=== PATIENT | female | born 1965 | race Caucasian/White ===

== ENCOUNTER → 2020-05-23 | Outpatient (CLI) | payer OTHER ==
--- NOTE | 2020-05-23 14:47 | RAD ---
EXAM: CHEST 2 VIEWS. HISTORY: Pneumonia. COMPARISON: 10/04/2006. FINDINGS: Frontal and lateral views of the chest are obtained. There are no confluent infiltrates. There is no pneumothorax or pleural effusion. The heart is not enlarged. Prominence of the left heart border is stable and likely reflects an epicardial fat pad. Breast implants and spinal stimulator electrodes are noted. IMPRESSION: 1. No confluent infiltrates. Electronically signed by: Cari Maldonado MD (05/23/2020 2:44 PM) [id number]
--- NOTE | 2020-05-27 16:40 | RAD ---
BILATERAL SCREENING MAMMOGRAM, 3-D A report was produced for this patient's exam. The content of the report was intended for a different patient's exam. Please disregard the dictated report. Interpretation for this patient's screening mammogram mammogram will be provided at a later date. Electronically signed by: Bashir Brown MD (05/27/2020 4:38 PM) [id number]
== END | disposition home or self-care (01) ==
LOC: MAMMO 10:12
PROVIDERS: ATTEND Family Medicine
DX: Z12.31 Encounter for screening mammogram for malignant neoplasm of breast (principal); J18.9 Pneumonia, unspecified organism
CPT/HCPCS: 71046; 77063; 77067

== ENCOUNTER → 2020-06-20 | Outpatient (CLI) | payer OTHER ==
--- NOTE | 2020-06-20 13:19 | RAD ---
DATE: 06/20/2020 1:00 PM EXAM: DIGITAL DIAGNOSTIC LT HISTORY: Screening recall for nodular asymmetry in the subareolar left breast COMPARISON: 05/23/2020, 03/23/2018 Technique: Spot compression views of the left breast in the CC and MLO projections were obtained FINDINGS: Breast Density: SCATTERED The breast parenchyma shows scattered fibroglandular densities. Breast parenchyma level B Questioned nodular asymmetry did not persist with additional views. IMPRESSION: No mammographic evidence of malignancy. BI-RADS CATEGORY: 1 NEGATIVE RECOMMENDED FOLLOW-UP: 12M 12 MONTH FOLLOW-UP Annual screening mammography is recommended, unless clinically indicated sooner based on symptoms or change in physical exam. PQRS compliance statement: Patient information was entered into a reminder system with a target due date for the next mammogram. Mammography is a sensitive method for finding small breast cancers, but it does not detect them all and is not a substitute for careful clinical examination. A negative mammogram does not negate a clinically suspicious finding and should not result in delay in biopsying a clinically suspicious abnormality. "Our facility is accredited by the [employer] Mammography Program."
== END | disposition home or self-care (01) ==
LOC: MAMMO 12:45
PROVIDERS: ATTEND Family Medicine
DX: R92.2 Inconclusive mammogram (principal)
CPT/HCPCS: 77065

== ENCOUNTER 2021-01-23 18:13 | Inpatient (IN) | payer OTHER ==
[~2021-01-23] VITALS: Ht 162.6 cm; Wt 82.4 kg
[2021-01-23] MEDS ORDERED: IBUPROFEN 600 MG TABLET. PO ONE (19:00)
[2021-01-23] MEDS ORDERED: ACETAMINOPHEN 500 MG TABLET PO ONE (19:00)
[2021-01-23] MEDS ORDERED: IV RINGERS SOLUTION,LACTATED 1,000 ML IV ONE (19:00)
--- NOTE | 2021-01-23 19:08 | PHYS DOC ---
Past History Past Medical History: Other Additional Past Medical Histor: Chronic back pain Alcohol Use: None Adult General Chief Complaint Chief Complaint: SHORTNESS OF BREATH HPI HPI Patient is a 55-year-old female with a past medical history significant for hypertension who presents with a chief complaint of 2 to 3 days of shortness of breath at home. States that her recently had similar symptoms but does not know if it is Covid or not. States over the last couple of days has had some dyspnea on exertion but denies chest pain, abdominal pain, nausea, vomiting, diarrhea, dysuria, hematuria or blood in the stool. States she also has some fatigue and generalized body aches. States she has had intermittent fevers at home, last 1 being yesterday of 101 and took some Tylenol which did resolve the fever. Denies any recent travel. Review of Systems Review of Systems Review of systems otherwise unremarkable except noted in HPI Allergies Allergies Allergies Coded Allergies Type Severity Reaction Last Updated Verified cyclobenzaprine Allergy Unknown 01/23/21 Yes Physical Exam Physical Exam Constitutional: Well developed, well nourished, no acute distress, appears that she does not feel well [] HENT: Normocephalic, atraumatic, bilateral external ears normal, oropharynx moist, no oral exudates, nose normal. [] Eyes:conjunctiva normal, no discharge. [] Neck: Normal range of motion, no tenderness, supple, no stridor. [] Cardiovascular:Heart rate regular rhythm, no murmur [] Lungs & Thorax: Bilateral breath sounds notable for global rhonchi, worse on the left with no wheezing. Tachypnea and hypoxia on room air, placed on 2 L nasal cannula to achieve 94% saturation. Abdomen: soft, no tenderness, no masses, no pulsatile masses. [] Skin: Warm, dry, no erythema, no rash. [] Back: No tenderness, Extremities: No tenderness, no cyanosis, no clubbing, ROM intact, no edema. [] Neurologic: Alert and oriented X 3, normal motor function, normal sensory function, no focal deficits noted. [] Psychologic: Affect normal, judgement normal, mood normal. [] Current Patient Data Vital Signs Vital Signs Date Time Temp Pulse Resp B/P (MAP) Pulse Ox O2 Delivery O2 Flow Rate FiO2 01/23/21 18:48 98.3 87 16 134/83 (100) 88 Room Air EKG EKG Rate of 84, QRS of 100, QTC of 469, no STEMI. Normal EKG [] Radiology/Procedures Radiology/Procedures []FINDINGS: The cardiomediastinal silhouette is within normal limits. Patchy areas of consolidative change identified within the right upper lobe, right middle lobe and left lower lobe. There are no significant pleural effusions. There is no pulmonary vascular congestion. No pneumothorax. No suspicious osseous abnormality. Spinal epidural leads are partially profiled. IMPRESSION: New patchy areas of consolidation identified within the lungs predominantly involving the right upper lobe, right middle lobe and left lower lobe and lingula. Findings favor multifocal pulmonary infiltrates. Electronically signed by: Maye Dietz MD (01/23/2021 7:19 PM) [facility] Heart Score C/O Chest Pain: No Risk Factors: Risk Factors: DM, Current or recent (<one month) smoker, HTN, HLP, family history of CAD, obesity. Risk Scores: Risk Factors: DM, Current or recent (<one month) smoker, HTN, HLP, family history of CAD, obesity. Course & Med Decision Making Course & Med Decision Making Patient is a 55-year-old female presents with several days of shortness of breath, associated with decreased appetite, fatigue and body aches Vital signs notable for tachypnea and hypoxia to 88 on room air. Vital signs otherwise normal. Placed on 2 L nasal cannula to reach a saturation of 94%. EKG noted above and not concerning for STEMI. Troponin normal. Laboratory analysis not concerning. Lactate normal. Blood gas with a pH of 7.5, PCO2 of 32, PO2 of 39, bicarb of 30, lactate of 1.23 Patient placed on the monitor with IV access established and IV fluid resuscitation begun. Ibuprofen and Tylenol given. Given Zofran for nausea. Chest x-ray notable for multifocal infiltrates. Cultures obtained. Antibiotics started. Covid swab obtained. IV fluid resuscitation continued. Given DVT prophylaxis Lovenox. Gave steroids. [] Discussed findings with patient and recommended admission for continued evaluation and treatment of her hypoxic respiratory distress secondary to pneumonia. Patient grateful, verbalized understanding and agreed with plan of admission. Dragon Disclaimer Dragon Disclaimer This electronic medical record was generated, in whole or in part, using a voice recognition dictation system. Departure Departure: Impression: Primary Impression: Pneumonia Additional Impression: Hypoxia Disposition: 09 ADMITTED INPT THIS HOSP Admitting Physician: Milagros Morley Condition: IMPROVED Referrals: SAUNDRA ESTEVES MD (PCP) Problem Qualifiers TA STACK MD Jan 23, 2021 19:08
[2021-01-23] MEDS ORDERED: ONDANSETRON PF 4 MG/2 ML VIAL. IVP ONE (19:15)
[2021-01-23 19:19] LABS: BASO % 1 % (0-3); EOS % 0 % (0-3); HEMATOCRIT 37.9 % (36.0-47.0); HEMOGLOBIN 12.7 g/dL (12.0-15.5); LYMPH # 1.4 x10^3/uL (1.0-4.8); LYMPH % 21 % (24-48); MEAN CORPUSCULAR HEMOGLOBIN 29 pg (25-35); MEAN CORPUSCULAR HGB CONC 34 g/dL (31-37); MEAN CORPUSCULAR VOLUME 85 fL (79-100); MONO # 0.7 x10^3/uL (0.0-1.1); MONO % 11 % (0-9); NEUT # 4.4 x10^3uL (1.8-7.7); NEUT % 68 % (31-73); PLATELET COUNT 400 x10^3/uL (140-400); RED BLOOD COUNT 4.45 x10^6/uL (3.50-5.40); RED CELL DISTRIBUTION WIDTH 12.8 % (11.5-14.5); WHITE BLOOD COUNT 6.5 x10^3/uL (4.0-11.0)
--- NOTE | 2021-01-23 19:21 | RAD ---
XR CHEST 1V 01/23/2021 6:57 PM INDICATION: Shortness of breath COMPARISON: 05/23/2020 TECHNIQUE: Portable frontal view of the chest is provided. FINDINGS: The cardiomediastinal silhouette is within normal limits. Patchy areas of consolidative change identified within the right upper lobe, right middle lobe and le ft lower lobe. There are no significant pleural effusions. There is no pulmonary vascular congestion. No pneumothora x. No suspicious osseous abnormality. Spinal epidural leads are partially profiled. IMPRESSION: New patchy areas of consolidation identified within the lungs predominantly involving the right upper lobe, right middle lobe and left lower lobe and lingula. Findings favor multifocal pulmonary infiltr ates. Electronically signed by: Maye Dietz MD (01/23/2021 7:19 PM) [facility]
[2021-01-23 19:32] LABS: CALCIUM 8.2 mg/dL (8.5-10.1); CREATININE 0.7 mg/dL (0.6-1.0); GFR 86.6; POTASSIUM 3.1 mmol/L (3.5-5.1)
[2021-01-23 19:46] LABS: ALBUMIN 2.7 g/dL (3.4-5.0); ALBUMIN/GLOBULIN RATIO 0.7 (1.0-1.7); TOTAL BILIRUBIN 0.5 mg/dL (0.2-1.0); TOTAL PROTEIN 6.6 g/dL (6.4-8.2)
[2021-01-23] MEDS ORDERED: ENOXAPARIN 40 MG/0.4 ML SYRINGE. SQ ONE (20:45)
[2021-01-23] MEDS ORDERED: DEXAMETHASONE 4 MG TABLET PO ONE (20:45)
--- NOTE | 2021-01-23 22:12 | EKG ---
[facility] [address] [place] [address] Test Date: 2021-01-23 Test Time: 19:18:58 Pat Name: SANDER ADAM Department: Room: Gender: F Distribution Designer: SAIGE : 1965 Requested By: TA STACK Order Number: [id number] Reading MD: Measurements Intervals [place] Rate: 84 P: 38 MI: 122 QRS: 64 QRSD: 100 T: 51 QT: 394 QTc: 469 Interpretive Statements SINUS RHYTHM NORMAL ECG RI6.02 No previous ECG available for comparison
[2021-01-23 22:30] VITALS: BP 138/75
--- NOTE | 2021-01-23 22:30 | NUR ---
Pt admitted to ICU bed 1 from ER via [facility], accompanied by EMS and nursing staff. Pt ambulated from rney to bed independently, steady gait noted. Pt here for c/o SOA and fever. Pt is a PUI, Pt stated that her felt the same way about a week ago and tested negative for Covid. Admission assessment completed. Health history reviewed with pt. Home medication bottles (3) here in purse, reviewed with pt. Pt lives at home with her . Lovenox for VTE. Pt refused of flu vaccine. Discussed POC with pt, verbalize understanding. Call light in reach. Pt was given written information regarding hospital policies, unit procedures and contact persons. Valuables were checked and logged, left in room with pt. Pt given box lunch for HS snack per request. Dr Morley called regarding admission and new orders received.
[2021-01-23] MEDS ORDERED: OXYC10TA PO (22:33)
[2021-01-23] MEDS ORDERED: VENL75CA6 PO (22:33)
[2021-01-23] MEDS ORDERED: OXYC13.5 PO (22:33)
[2021-01-23] MEDS ORDERED: POTASSIUM CHLORIDE 20 MEQ TABLET.ER. PO ONE (22:45)
[2021-01-23] MEDS ORDERED: oxyCODONE ER 10 MG TAB.ER.12H PO PRN (23:00)
[2021-01-23 23:38] LABS: BILIRUBIN,URINE NEG (NEG); CLARITY,URINE CLEAR; COLOR,URINE YELLOW; GLUCOSE,URINE NEG (NEG)
[2021-01-23 23:39] LABS: BACTERIA,URINE 0 /HPF (0-FEW); NITRITE,URINE NEG (NEG); RBC,URINE 0 /HPF (0-2); SQUAMOUS EPITHELIAL CELL,UR FEW /LPF; WBC,URINE OCC /HPF (0-4)
[2021-01-24 05:45] VITALS: BP 125/82
[2021-01-24] MEDS ORDERED: IOHEXOL 350 MG/ML 100 ML VIAL. IV ONE ×2 (07:15)
--- NOTE | 2021-01-24 08:39 | RAD ---
CT angiography of the chest 01/24/2021 7:37 AM Indication: SOA, Hypoxia, high D-Dimer PUI / History: Technique: Multiple contiguous axial images were obtained through the chest after administration of i ntravenous iodinated contrast. Coronal, sagittal, and 3-D MIP reformations were created. Comparison: None Findings: There is no filling defect within central pulmonary arteries or evidence of acute pulmonary embolism. Heart size is normal. No pericardial effusion is appreciated. Scattered mildly prominent mediastinal lymphadenopathy noted. The thoracic aorta is grossly normal in course and contour. There is no pneumothorax or pleural effus ion. There are patchy groundglass infiltrates throughout the bilateral lungs involving all lobes. The appe arance is suggestive of multifocal pneumonia and may represent a viral or atypical infectious process . Limited visualization of the upper abdomen demonstrates fatty infiltration of the liver. No acute n ormalities of the upper abdomen are identified. No acute osseous changes are seen. IMPRESSION: 1. No evidence of pulmonary embolism 2. Patchy groundglass infiltrates throughout the bilateral lungs involving all lobes concerning for m ultifocal pneumonia, particularly atypical or viral pneumonia . Given provided history of PUI status, the appearance would be consistent with Covid [address] DOSING PQRS STATEMENT: One or more of the following individualized dose reduction techniques were utilized for this examinat ion: 1. Automated exposure control 2. Adjustment of the mA and/or kV according to patient size 3. Use of iterative reconstruction technique Electronically signed by: Natan Kirk MD (01/24/2021 8:37 AM) [place] [id number]
[2021-01-24] MEDS ORDERED: ENOXAPARIN 40 MG/0.4 ML SYRINGE. SQ SCH (09:00)
[2021-01-24] MEDS: VENLAFAXINE 75 MG TABLET. PO SCH ×3 (09:00→20:52)
[2021-01-24] MEDS: LACTOBACILLUS RHAMNOSUS GG 1 CAPSULE. PO SCH ×2 (09:33→20:51)
[2021-01-24] MEDS: DEXAMETHASONE 4 MG TABLET PO SCH (09:33)
[2021-01-24 11:00] VITALS: BP 118/78
[2021-01-24] MEDS ORDERED: REMDESIVIR LOAD in IV NORMAL SALINE 250ML TV IV ONE (12:30)
[2021-01-24] MEDS ORDERED: DEXTROSE 50% 25 GM / 50ML DISP.SYRIN. IV PRN (13:15)
[2021-01-24] MEDS: OXYCODONE MYRISTATE 13.5 MG PO SCH ×2 (13:40→20:52)
[2021-01-24 15:00] VITALS: BP 119/73
[2021-01-24 15:00] LABS: CALCIUM 8.3 mg/dL (8.5-10.1); CREATININE 0.6 mg/dL (0.6-1.0); GFR 103.4; POTASSIUM 3.8 mmol/L (3.5-5.1)
--- NOTE | 2021-01-24 15:07 | HP ---
ADMIT DATE: 01/23/2021 HISTORY OF PRESENT ILLNESS: The patient is a 55-year-old female patient who came to the Emergency Room yesterday stating that she has been complaining of shortness of breath started last Wednesday. She also complained of cough, fever, aches and pains, mild loss of taste and smell. Her symptoms have been progressively worse and yesterday she became very short of breath that she cannot even walk to the bathroom and therefore she decided to come to the Emergency Room where she was evaluated. Apparently yesterday, her temperature went up to 101 and took some Tylenol which did not resolve the fever. Her apparently had similar symptoms, but does not know if it is COVID or not. He apparently was tested and was negative and he went back to work, according to her. She was extensively investigated in the Emergency Room and has had lab work and imaging studies. Her CBC was unremarkable. Her chemistry showed that she has hypokalemia. Her blood gases were venous and her D-dimer was extremely high at 19 and urinalysis was essentially unremarkable. She had a chest x-ray which showed new patchy areas of consolidation identified within the lungs, predominantly involving the right upper lobe and right middle lobe and left lower and the lingula. Findings favor multifocal pulmonary infiltrate. Given her elevated D-dimer, she had a CT angio of the chest, which showed no evidence of pulmonary embolism; however, she has patchy ground glass infiltrates throughout the bilateral lungs involving all lobes concerning for multifocal pneumonia, particularly atypical or viral pneumonia, given the provided history of DUIs status, the appearance would be consistent with COVID-19 pneumonia. The patient was admitted with acute hypoxic respiratory failure, COVID-19 pneumonia with possible superimposed community-acquired pneumonia. She was started on IV Levaquin together with dexamethasone, Lovenox and remdesivir. PAST MEDICAL HISTORY: Significant for chronic back pain, chronic bronchitis, questionable chronic obstructive pulmonary disease, generalized osteoarthritis and osteoporosis. PAST SURGICAL HISTORY: Significant for 5 back surgeries, one neck surgery. 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 She has also had and underwent screening colonoscopy. ALLERGIES: She is allergic to CYCLOBENZAPRINE. MEDICATIONS: She is currently on following medications: She is on oxycodone 5 mg every 8 hours. She is on ____ Xtampza 13.5 mg twice a day. She is also on venlafaxine 225 mg daily for depression. REVIEW OF SYSTEMS: As per history of present illness. FAMILY HISTORY: She has no brothers or sisters. Both parents are alive. Her father is still alive at the age of 80 and mother is alive at age of 77. SOCIAL HISTORY: She is , has 2 daughters and 1 son. She quit smoking in 2013. She smoked a pack a day for almost 30 years. She does not drink alcohol or use any recreational drugs. She works as a transportation dispatcher. PHYSICAL EXAMINATION: GENERAL: On arrival to the Emergency Room, the patient was slightly tachypneic, hypoxic; however, there is no pallor, jaundice or cyanosis. No lymphadenopathy, no thyromegaly. No jugular venous distention. No limb edema. VITAL SIGNS: Her heart rate was 79, blood pressure was 138/75, temperature was 97.6, respiratory rate was 20, and oxygen saturation was 88% on room air. HEAD, EYES, EARS, NOSE AND THROAT: Showed normocephalic, atraumatic. NECK: Supple. HEART: Showed normal first and second heart sounds. No gallop or murmur. CHEST: Shows central trachea, equal bilateral chest expansion, air entry, vesicular sounds with bilateral basal crepitation posteriorly. I could not appreciate any rhonchi. ABDOMEN: Distended, soft, nontender. NEUROLOGIC: She is awake, alert, responding appropriately. All her cranial nerves are intact. EXTREMITIES: She moves extremities without difficulty. She normally ambulates without assistance or assistive devices. LABORATORY DATA: Her lab work on admission showed a white cell count of 6500, hemoglobin 12.7, hematocrit 38, MCV 85 and platelet count of 400,000. Her serum sodium was 138, potassium 3.1, chloride 100, bicarbonate 30, anion gap of 8, BUN 14, creatinine 0.7, estimated GFR was 86 mL per minute. Her glucose was 180, lactic acid was 1.5, calcium was 8.2. Total bilirubin, AST, ALT, alkaline phosphatase were normal. Total protein was 6.6, albumin was 2.7. Her D-dimer was high, more than 19 mg/dL. Urinalysis was essentially unremarkable and her COVID test still pending at the time of this dictation. Her chest x-ray showed the patient has patchy areas of consolidative changes identified within the right upper lobe, right middle lobe and left lower lobe. There is no significant pleural effusion and there is no primary vascular congestion, no pneumothorax and no suspicious osseous abnormality. Spinal epidural leads are partially profiled. The CT angio of the chest showed the patient has no evidence of pulmonary embolism; however, she has patchy ground-glass infiltrate throughout the bilateral lungs involving all lobes concerning for multifocal pneumonia, particularly atypical or viral pneumonia given the provided history of DUI status, the appearance would be consistent with COVID-19 pneumonia. ASSESSMENT AND PLAN: The patient was admitted with acute hypoxic respiratory failure, COVID-19 pneumonia, possible superimposed community-acquired pneumonia. The patient has been a smoker before ____ also underlying chronic obstructive pulmonary disease and her blood sugar is high and she could also be possibly diabetic with now she is going to be on steroids, so we will arrange for her to have her blood sugar checked before meals and bedtime and might have to start her on insulin sliding scale if deemed necessary. DENISE LAIRD MD DR: TIMOTHY/terrance JOB#: [id number] / [id number]
[2021-01-24] MEDS: INSULIN LISPRO 300 UNITS/3 ML VIAL. SQ SCH (17:00)
[2021-01-24] MEDS: IPRATROPIUM/ALBUTEROL 20/100mcg/INH INHALER. INH SCH (20:51)
[2021-01-24] MEDS: oxyCODONE ER 10 MG TAB.ER.12H PO SCH (20:51)
[2021-01-24 21:00] VITALS: BP 114/64
--- NOTE | 2021-01-25 05:57 | PN ---
DATE: 01/24/2021 SUBJECTIVE: The patient is resting, slightly propped up in bed, in no apparent distress. She continues to complain of cough with scanty sputum and shortness of breath. Denied any chest pain. Denied any chills, rigors, or fever. She was admitted yesterday with acute hypoxic respiratory failure, COVID-19 pneumonia given the appearance of her chest x-ray, and possible superimposed community-acquired pneumonia. PHYSICAL EXAMINATION: GENERAL: When I examined her this afternoon, she looked well and was clearly in no apparent respiratory distress. She is somewhat pale, but no jaundice or cyanosis. No lymphadenopathy, no thyromegaly. No jugular venous distension. No limb edema. VITAL SIGNS: Her heart rate was 69, blood pressure was 118/78, temperature was 97.8, respiratory rate was 18, and oxygen saturation was 91% on 4 liters of oxygen. HEAD, EYES, EARS, NOSE, AND THROAT: Showed normocephalic, atraumatic. NECK: Supple. HEART: Showed normal first and second heart sounds. No gallop or murmur. CHEST: Showed central trachea. Equal bilateral chest expansion, air entry. Vesicular sounds with bilateral basal crepitation posteriorly. No rhonchi. ABDOMEN: Distended, soft, nontender. NEUROLOGIC: She is awake, alert, responding appropriately. All cranial nerves are intact. She moves extremities without difficulty, although she is mostly bedbound. LABORATORY DATA: Her lab work is still pending at the time of this dictation. ASSESSMENT: 1. Acute hypoxic respiratory failure. 2. COVID-19 pneumonia. 3. Possible superimposed community-acquired pneumonia. 4. Previous history of tobacco use, she smoked cigarettes for more than 30 years, making COPD highly likely. 5. She has also hyperglycemia, possibility of underlying diabetes mellitus. PLAN: My plan is to continue obviously with IV levofloxacin and IV dexamethasone. We will continue with remdesivir. I will increase her Lovenox to 60 mg twice a day and continue with oxycodone and OxyContin, as we do not have the Xtampza, and also monitor her blood sugar and start her on insulin if need be. If her oxygen requirement worsened, we might have to transfer her to [facility] as she is full code. DENISE LAIRD MD DR: TIMOTHY/terrance JOB#: [id number] / [id number]
[2021-01-25 06:00] VITALS: BP 122/74
[2021-01-25 07:06] LABS: HEMATOCRIT 37.7 % (36.0-47.0); HEMOGLOBIN 12.6 g/dL (12.0-15.5); RED BLOOD COUNT 4.37 x10^6/uL (3.50-5.40); RED CELL DISTRIBUTION WIDTH 13.4 % (11.5-14.5); WHITE BLOOD COUNT 14.5 x10^3/uL (4.0-11.0)
[2021-01-25 07:08] LABS: ALBUMIN 2.3 g/dL (3.4-5.0); ALBUMIN/GLOBULIN RATIO 0.5 (1.0-1.7); C REACTIVE PROTEIN 79.7 mg/L (0-3.3); CALCIUM 8.6 mg/dL (8.5-10.1); CREATININE 0.8 mg/dL (0.6-1.0); GFR 74.2; POTASSIUM 4.1 mmol/L (3.5-5.1); TOTAL BILIRUBIN 0.2 mg/dL (0.2-1.0); TOTAL PROTEIN 6.5 g/dL (6.4-8.2)
[2021-01-25] MEDS: LACTOBACILLUS RHAMNOSUS GG 1 CAPSULE. PO SCH ×2 (08:28→20:40)
[2021-01-25] MEDS: ENOXAPARIN ** NOTE DOSE ** SYRINGE SQ SCH (08:28)
[2021-01-25] MEDS: DEXAMETHASONE 4 MG TABLET PO SCH (08:28)
[2021-01-25] MEDS: VENLAFAXINE 75 MG TABLET. PO SCH ×3 (08:30→20:40)
[2021-01-25] MEDS: oxyCODONE ER 10 MG TAB.ER.12H PO SCH (08:31)
[2021-01-25] MEDS: INSULIN LISPRO 300 UNITS/3 ML VIAL. SQ SCH ×3 (09:25→17:12)
[2021-01-25] MEDS: OXYCODONE MYRISTATE 13.5 MG PO SCH ×2 (09:26→21:00)
[2021-01-25] MEDS: IPRATROPIUM/ALBUTEROL 20/100mcg/INH INHALER. INH SCH ×4 (09:26→20:40)
[2021-01-25 11:00] VITALS: BP 107/60
[2021-01-25] MEDS ORDERED: REMDESIVIR 100mg in NORMAL SALINE 250ML X 4 DAYS IV SCH (12:30)
--- NOTE | 2021-01-25 14:35 | PN ---
DATE: 01/25/2021 SUBJECTIVE: The patient is resting, slightly propped up in bed, in no apparent distress. She continues to have cough, some shortness of breath and she is now on 4 liters of oxygen. She denied any chest pain, denied any chills, rigor, or fever. PHYSICAL EXAMINATION: GENERAL: When I examined her, she looked well and was clearly in no apparent respiratory distress. No pallor, jaundice, cyanosis or thyromegaly. No jugular venous distention or limb edema. VITAL SIGNS: Her heart rate was 85, blood pressure was 107/60, her temperature was 97.9, respiratory rate was 16, and oxygen saturation was 95% on 4 liters of oxygen by nasal cannula. HEAD, EYES, EARS, NOSE AND THROAT: Showed normocephalic and atraumatic. NECK: Supple. HEART: Showed normal first and second heart sounds. No gallop, rub or murmur. CHEST: Shows central trachea, equal bilateral chest expansion, air entry, vesicular breath sounds with crepitation mostly on the left side. I could not appreciate any rhonchi. ABDOMEN: Distended, soft, nontender. NEUROLOGIC: She is awake, alert, responding appropriately. All her cranial nerves intact. She moves extremities without difficulty. Her intake was 1750, output was 1300. LABORATORY DATA: Showed a white cell count of 14,500; hemoglobin 12.6; hematocrit 38; MCV 86 and platelet count of 160,000. Serum sodium was 142, potassium 4.1, chloride 105, bicarbonate 32, anion gap of 5, BUN 14, creatinine 0.8, estimated GFR was 74 mL per minute. Her glucose 131, calcium was 8.6. Total bilirubin, AST, ALT, alkaline phosphatase were normal. Her C-reactive protein was 79. Total protein 6.5, albumin was 2.3. Her D-dimer was extremely high. Urinalysis essentially unremarkable and her coronavirus PCR was not detectable. ASSESSMENT: 1. Acute hypoxic respiratory failure. 2. Community-acquired pneumonia. 3. COVID-19 test was negative. 4. Questionable chronic obstructive pulmonary disease. 5. Hyperglycemia. PLAN: My plan is to discontinue remdesivir, continue with all other medications. We will monitor her closely and once she is stable, she can be discharged home. DENISE LAIRD MD DR: Eliana JOB#: [id number] / [id number]
[2021-01-25 17:29] VITALS: BP 123/69
[2021-01-25] MEDS ORDERED: oxyCODONE IR 5 MG TABLET PO PRN (19:00)
[2021-01-26 05:00] VITALS: BP 148/89
[2021-01-26] MEDS: INSULIN LISPRO 300 UNITS/3 ML VIAL. SQ SCH ×2 (08:00→12:00)
[2021-01-26 08:28] LABS: HEMATOCRIT 37.3 % (36.0-47.0); HEMOGLOBIN 12.5 g/dL (12.0-15.5); RED BLOOD COUNT 4.35 x10^6/uL (3.50-5.40)
[2021-01-26 08:33] LABS: ALBUMIN 2.4 g/dL (3.4-5.0); ALBUMIN/GLOBULIN RATIO 0.6 (1.0-1.7); CALCIUM 8.5 mg/dL (8.5-10.1); CREATININE 0.8 mg/dL (0.6-1.0); GFR 74.2; TOTAL BILIRUBIN 0.4 mg/dL (0.2-1.0); TOTAL PROTEIN 6.3 g/dL (6.4-8.2)
[2021-01-26] MEDS: OXYCODONE MYRISTATE 13.5 MG PO SCH (09:00)
[2021-01-26] MEDS ORDERED: POTASSIUM CHLORIDE 20 MEQ TABLET.ER. PO ONE ×2 (09:00→11:00)
[2021-01-26] MEDS: IPRATROPIUM/ALBUTEROL 20/100mcg/INH INHALER. INH SCH ×2 (09:05→12:36)
[2021-01-26] MEDS: VENLAFAXINE 75 MG TABLET. PO SCH ×2 (09:06→12:42)
[2021-01-26] MEDS: LACTOBACILLUS RHAMNOSUS GG 1 CAPSULE. PO SCH (09:06)
[2021-01-26] MEDS: DEXAMETHASONE 4 MG TABLET PO SCH (09:06)
[2021-01-26] MEDS: ENOXAPARIN ** NOTE DOSE ** SYRINGE SQ SCH (09:07)
[2021-01-26] MEDS ORDERED: SODIUM CHLORIDE 0.65% NASAL SPRAY 45ML BOTTLE. NS PRN (09:30)
[2021-01-26 11:19] VITALS: BP 108/60
--- NOTE | 2021-01-26 16:10 | NUR ---
PT IS DISCHARGED HOME WITH SELF CARE. PT IS GIVEN ALL WRITTEN FOLLOW UP AND DISCHARGE INSTRUCTIONS. PT IS STABLE AT TIME OF DISCHARGE. PTS IV IS REMOVED AND IS ESCORTED OFF OF UNIT ACCOMPANIED BY STAFF.
--- NOTE | 2021-01-26 19:16 | DS ---
DATE OF DISCHARGE: 01/26/2021 HOSPITAL COURSE: The patient is a 55-year-old female patient, who was admitted to the Emergency Room of [facility] with increasing shortness of breath, complained of cough, fever, aches and pains, mild loss of taste and smell. Her symptoms have been progressively worsened on the day before admission. She became very short of breath. She cannot even walk to the bathroom and therefore, she decided to come to the Emergency Room. Apparently, her temperature was 101. She took Tylenol without much improvement. Her apparently had similar symptoms, but was tested and was negative. The patient was admitted with possible COVID infection and COVID pneumonia and possible superimposed community-acquired pneumonia. Her lab work showed no leukocytosis. Her chemistry showed hypokalemia, her blood gases and D-dimer was extremely high and urinalysis essentially unremarkable. She had chest x-ray, which showed patchy areas of consolidation identified within the lungs predominantly involving the right upper lobe and right middle lobe and left lower and lingular finding have fever, multifocal pulmonary infiltrate. Given her elevated D-dimer, had a CT angio of the chest, which showed no evidence of pulmonary embolism; however, she has patchy ground-glass infiltrate and was treated with IV Levaquin as well as dexamethasone, oxygen supplementation, continued on her pain medication and Lovenox. She did actually very well. Her coronavirus by PCR was undetectable. She did actually very well and today she has been afebrile. Her white cell count was elevated, probably due to steroids. Her potassium was low, so she was given potassium supplement and her potassium this afternoon was 3.7. As the patient remained asymptomatic, all her symptoms are largely resolved, she is afebrile, her oxygen saturation on room air was 94%, a decision was made to discharge her home to continue the antibiotic therapy as an outpatient. PHYSICAL EXAMINATION: GENERAL: When I saw her this afternoon, she looked well and was clearly in no apparent respiratory distress. No pallor, jaundice, cyanosis or thyromegaly. No jugular venous distension. No limb edema. VITAL SIGNS: Her heart rate was 85, blood pressure was 108/60, temperature 97.5, respiratory rate 24 and oxygen saturation was 94% on room air. HEAD, EYES, EARS, NOSE AND THROAT: Showed normocephalic, atraumatic. NECK: Supple. HEART: Showed normal first and second heart sounds. No gallop, rub or murmur. CHEST: Clear to auscultation. No crepitation or rhonchi. ABDOMEN: Distended, soft, nontender. NEUROLOGIC: She is awake, alert, responding appropriately. All cranial nerves intact. She ambulates without assistance or assistive devices. LABORATORY DATA: White cell count was 16,000, hemoglobin 12.5, hematocrit 37, MCV 86 and platelet count 530,000. Her chemistry showed a serum sodium 142, potassium 3.7, chloride 105, bicarbonate 29, anion gap of 8, BUN 17, creatinine 0.8, estimated GFR was 74 mL per minute. Her glucose 103, calcium was 8.5. Total bilirubin, AST, ALT, alkaline phosphatase were normal. Total protein 6.3, albumin was 2.4. Her D-dimer was high, more than 19 mg/dL. Urinalysis was unremarkable and coronavirus PCR was not detectable. DISCHARGE MEDICATIONS: The patient was discharged home to continue on her oxycodone extended release 10 mg every 8 hours. She is on oxycodone __ Xtampza extended release to 13.5 mg every 12 hours, venlafaxine 75 mg she takes 3 tablets once a day. She was discharged also on levofloxacin 750 mg once a day for 7 days, dexamethasone 4 mg once a day for 3 days and then 2 mg once a day for 3 days. FINAL DISCHARGE DIAGNOSES: Acute hypoxic respiratory failure, resolved, community-acquired pneumonia. Other medical problems include chronic pain syndrome, questionable chronic obstructive pulmonary disease, generalized osteoarthritis, and osteoporosis. DENISE LAIRD MD DR: TIMOTHY/terrance JOB#: [id number] / [id number]
[2021-01-27 07:37] LABS: POTASSIUM 2.9 mmol/L (3.5-5.1)
== END 2021-01-26 16:10 | disposition home or self-care (01) | DRG 193 ==
LOC: ER 18:13 → ICU 20:47 → ER 21:53 → 1 SOUTH 01-25 23:39
PROVIDERS: ADMIT Internal Medicine; ATTEND Internal Medicine
DX: J18.9 Pneumonia, unspecified organism (principal); J96.01 Acute respiratory failure with hypoxia; J44.0 Chronic obstructive pulmonary disease with (acute) lower respiratory infection; E87.6 Hypokalemia; F17.200 Nicotine dependence, unspecified, uncomplicated; G89.4 Chronic pain syndrome; I10 Essential (primary) hypertension; T38.0X5A Adverse effect of glucocorticoids and synthetic analogues, initial encounter; Z20.822 Contact with and (suspected) exposure to COVID-19; Y92.89 Other specified places as the place of occurrence of the external cause
CPT/HCPCS: 36415; 71045; 71275; 80048; 80053; 81001; 82803; 82947; 83605; 84132; 84484; 85025; 85027; 85379; 86140; 87040; 93005; 96361; 96365; 96375; J1650; J1815; J1956; J2405; J7050; J7120; J8540; Q9967; U0003; 99285-25